=== PATIENT | female | born 1965 | race Two or more races ===

== ENCOUNTER 2021-10-21 08:00 | Outpatient (CLI) | payer OTHER | END 2021-10-21 23:59 | disposition home or self-care (01) | LOC: LAB 08:00 | PROVIDERS: ATTEND Specialist | DX: Z01.812 Encounter for preprocedural laboratory examination (principal); U07.1 COVID-19 | CPT/HCPCS: U0003; C9803 ==

== ENCOUNTER 2021-11-22 11:00 | Outpatient (CLI) | payer OTHER | END 2021-11-22 23:59 | disposition home or self-care (01) | LOC: LAB 11:00 | PROVIDERS: ATTEND Specialist | DX: Z01.812 Encounter for preprocedural laboratory examination (principal); Z20.822 Contact with and (suspected) exposure to COVID-19 | CPT/HCPCS: U0003; C9803 ==

== ENCOUNTER 2021-11-29 05:42 | Day surgery (SDC) | payer OTHER ==
[~2021-11-29] VITALS: Ht 172.7 cm; Wt 106.6 kg
--- NOTE | 2021-11-29 06:42 | NUR ---
ADMISSION NOTES PT ARRIVED AMBULATING TO ROOM AT APPROXIMATELY 0600. AOx4, ABLE TO MAKE NEEDS KNOWN. ON RA AND TOLERATING WELL. NO SOB NOTED. NO S/SX OF RESPIRATORY DISTRESS NOTED. IV ACCESS UNABLE TO BE OBTAINED. NPO SINCE 222911/28/21. VOIDED IN 0600. SAFETY PRECAUTIONS IN PLACE: BED IN LOWEST, LOCKED POSITION, SIDERAILS UPx2, AND BRAKES ON. TABLE AND CALL LIGHT WITHIN REACH. ALL NEEDS MET AT THIS TIME.
--- NOTE | 2021-11-29 07:30 | NUR ---
RN NOTES PATIENT IN THE OR FOR LEFT SHOULDER ARTHROSCOPY, ACROMIOPLASTY AND MAJOR DEBRIDEMENT OF PARTIAL THICKNESS ROTATOR CUFF TEAR.
[2021-11-29] MEDS ORDERED: MIDAZOLAM HCL 2 MG/2ML VIAL ONE (07:49)
[2021-11-29] MEDS ORDERED: PROPOFOL 20 ML IV ONE (07:49)
[2021-11-29] MEDS ORDERED: FENTANYL PF 250MCG/5ML AMPUL ONE (07:49)
[2021-11-29] MEDS ORDERED: ROCURONIUM BROMIDE 50 MG/5 ML ONE (07:51)
[2021-11-29] MEDS ORDERED: methylPREDNISolone ACETATE 80 MG/ML VIAL ONE (08:32)
[2021-11-29] MEDS ORDERED: HYDROCODONE/APAP 5/325MG TABLET PO PRN ×2 (10:00)
[2021-11-29 10:30] VITALS: BP 108/61
--- NOTE | 2021-11-29 10:30 | NUR ---
RN NOTE PATIENT WAS ENDORSED FROM OR BY KYLE GARCIA. PATIENT IS AWAKE AND A/O X4. ON ROOM AIR TOLERATING WELL. NO SOB NOTED. NOT IN DISTRESS. WITH NO COMPLAINTS OF PAIN OR DISCOMFORT AT THIS TIME. WITH IV ACCESS AT THE RIGHT AC G20 WITH IVF NS AT 75ML/HR INFUSING WELL. PATIENT IS S/P LEFT SHOULDER ARTHROSCOPY, ACROMIOPLASTY AND MAJOR DEBRIDEMENT OF PARTIAL THICKNESS ROTATOR CUFF TEAR. WITH STABLE VITAL SIGNS. SAFETY MEASURES IN PLACED. CALL LIGHT WITHIN REACH. BED ON LOWEST LOCKED POSITION, SIDE RAILS UP X2. WILL CONTINUE TO MONITOR.
--- NOTE | 2021-11-29 13:00 | NUR ---
RN NOTES PATIENT REMAINED STABLE AND DISCHARGED PER DR. QUIROZ'S ORDER. DISCHARGE INSTRUCTIONS PROVIDED. PATIENT VERBALIZED UNDERSTANDING. PATIENT SIGNED BELONGINGS LIST AND DISCHARGE FORM. REMOVED IV LINE AND NAME WRIST BAND. ACCOMPANIED PATIENT TO THE LOBBY VIA WHEELCHAIR IN STABLE CONDITION WITH AND LEFT VIA PRIVATE CAR. MD AND CHARGE NURSE ARE AWARE OF THE DISCHARGE.
== END 2021-11-29 19:00 | disposition home or self-care (01) ==
LOC: DS 05:42 → MED 05:43 → UNDOADMIN 05:43 → UNDODISIN 15:46 → DS 19:00
PROVIDERS: ATTEND Specialist
DX: M75.42 Impingement syndrome of left shoulder (principal); Z20.822 Contact with and (suspected) exposure to COVID-19; E66.3 Overweight
CPT/HCPCS: 29823; 29826; 86850; 36415; 87081; J0690; J1040; J1100; J2704; J3490 ×2; J2370; J2765; J2405; J2250; A4217; A4565; J3010; G0378